=== PATIENT | male | born 1965 | race African-American/Black ===

== ENCOUNTER 2019-09-11 08:21 | Outpatient (CLI) | payer OTHER ==
--- NOTE | 2019-09-11 11:12 | CT ---
CT lumbar spine without contrast: HISTORY: Low back pain since implant placed 1 year ago. Pain extending down right lower extremity. Lumbar radi culopathy. COMPARISON: No prior CT exams of the lumbar spine available FINDINGS: There are oval-shaped hypodense nodules involving each adrenal gland measuring 3 cm x 1.5 cm on the r ight and 2.9 cm x 1.6 cm on the left with attenuation coefficients most compatible with adrenal adenomas. Minimal vascular calcifications are seen in the iliac arteries. The remainder of the visual ized retroperitoneal structures demonstrate a grossly normal nonenhanced CT appearance. No fracture or subluxation is seen involving the lumbar spine. There is a dorsal column stimulator device entering the L3-4 level and extending inferiorly and into the central spinal canal of the sacrum with tip at the level of the S4 segment. There is a small lucency seen within the right aspect of the right sacral ala which has a nonaggressive appearance. Th ere is irregularity of the right iliac bone which is likely secondary to either prior injury or postsurgical changes. L1-2: No significant central canal or neural foraminal narrowing is seen. L2-3: There is a minimal disc osteophyte complex resulting in slight flattening the anterior aspect o f the thecal sac. The neural foramina are patent. L3-4: There is a minimal disc osteophyte complex and facet hypertrophic changes. There is mild efface ment of the ventral aspect of the thecal sac. Neural foramina are patent L4-5: Facet hypertrophic changes are present at this level. There is a mild disc osteophyte complex p resent. There is no significant narrowing of the central spinal canal or neural foramina. L5-S1: There is a disc osteophyte complex present with mild facet degenerative changes. There is sugg estion of a left foraminal disc protrusion. Right neural foramen and central spinal canal are patent. There is mild to moderate left-sided neural foraminal narrowing. IMPRESSION: 1. Dorsal column stimulator leads in place with leads within the central spinal canal of the sacrum. 2. Scattered mild degenerative changes in the lumbar spine. 3. Bilateral adrenal adenomas.
== END 2019-09-11 08:22 | disposition home or self-care (01) ==
LOC: MADCT 08:21
DX: M47.26 Other spondylosis with radiculopathy, lumbar region (principal); D35.02 Benign neoplasm of left adrenal gland; D35.01 Benign neoplasm of right adrenal gland
CPT/HCPCS: 72131